=== PATIENT | male | born 1965 | race Hispanic/Latino ===

== ENCOUNTER 2017-11-18 09:01 | Emergency (ER) | payer SELFPAY | END 2017-11-18 09:39 | disposition home or self-care (01) | LOC: EDH 09:01 | DX: M13.862 Other specified arthritis, left knee (principal) | CPT/HCPCS: 99281 ==

== ENCOUNTER 2022-11-26 17:12 | Emergency (ER) | payer SELFPAY ==
[~2022-11-26] VITALS: Ht 175.3 cm; Wt 95.3 kg
[2022-11-26 17:17] VITALS: BP 159/117
[2022-11-26] MEDS: ACETAMINOPHEN 500 MG TABLET PO ONE (18:06)
[2022-11-26] MEDS ORDERED: DICL20GE TP (18:31)
[2022-11-26] MEDS ORDERED: ACET-66 PO (18:31)
== END 2022-11-26 18:45 | disposition home or self-care (01) ==
LOC: EDH 17:12
DX: M25.562 Pain in left knee (principal); M25.561 Pain in right knee; W01.0XXA Fall on same level from slipping, tripping and stumbling without subsequent striking against object, initial encounter; Y93.89 Activity, other specified; Y92.512 Supermarket, store or market as the place of occurrence of the external cause; Y99.8 Other external cause status
CPT/HCPCS: 73562